=== PATIENT | male | born 1955 | race Caucasian/White ===

== ENCOUNTER 2022-02-05 09:40 | Outpatient (CLI) | payer MEDICARE, OTHER | END 2022-02-05 09:41 | disposition home or self-care (01) | LOC: CTENTCT 09:40 | PROVIDERS: ATTEND Specialist | DX: J30.9 Allergic rhinitis, unspecified (principal); J34.2 Deviated nasal septum; J33.0 Polyp of nasal cavity; J35.01 Chronic tonsillitis | CPT/HCPCS: 70486 ==